=== PATIENT | male | born 1975 | race African-American/Black ===

== ENCOUNTER 2021-01-15 19:42 | Emergency (ER) | payer MEDICAID ==
[~2021-01-15] VITALS: Ht 175.3 cm; Wt 93.5 kg
[2021-01-15] MEDS ORDERED: ONDANSETRON 2MG/ML, 2ML IVPush ONE (20:00)
[2021-01-15] MEDS ORDERED: SODIUM CHLORIDE FLUSH 10ML SYR IVF ONE (20:00)
[2021-01-15] MEDS ORDERED: ONDANSETRON ODT 4 MG PO ONE (20:00)
[2021-01-15] MEDS ORDERED: SODIUM CHLORIDE 0.9% 1,000ML IVBOLUS ONE (20:00)
[2021-01-15] MEDS ORDERED: ONDANSETRON ODT 4 MG ONE (20:00)
[2021-01-15 20:21] LABS: BASOPHILS % (AUTO) 1 % (0-1); EOSINOPHILS % (AUTO) 2 % (1-7); LYMPHOCYTES % (AUTO) 24 % (22-44); MEAN CORPUSCULAR HEMOGLOBIN 28.5 pg (27.5-34.5); MEAN CORPUSCULAR HGB CONC 33.1 g/dL (33.2-36.2); MEAN PLATELET VOLUME 6.5 fL (7.4-10.4); MONOCYTES % (AUTO) 8 % (2-9); NEUTROPHILS % (AUTO) 66 % (42-75); PLATELET COUNT 451 x10^3/uL (130-400); RED CELL DISTRIBUTION WIDTH 14.5 % (9.4-14.8)
[2021-01-15] MEDS ORDERED: MORPHINE SULFATE 4 MG/ML, 1ML IVPush PRN (20:30)
[2021-01-15 20:31] LABS: ALANINE AMINOTRANSFERASE 20 U/L (12-78); ALBUMIN 3.5 g/dL (3.4-5.0); ANION GAP 8 mmol/L (5-15); CALCIUM 9.3 mg/dL (8.5-10.1); CHLORIDE 104 mmol/L (98-107); CREATININE 0.91 mg/dL (0.7-1.3)
[2021-01-15] MEDS ORDERED: ONDANSETRON 2MG/ML, 2ML ONE (20:31)
[2021-01-15] MEDS ORDERED: MORPHINE SULFATE 4 MG/ML, 1ML ONE (20:32)
[2021-01-15 20:33] LABS: ALKALINE PHOSPHATASE 99 U/L (45-117); BILIRUBIN,TOTAL 0.5 mg/dL (0.2-1.0); TOTAL PROTEIN 7.5 g/dL (6.4-8.2)
[2021-01-15] MEDS ORDERED: FAMOTIDINE 20 MG/2 ML ONE (21:12)
[2021-01-15] MEDS ORDERED: MAALOX/HYOSCYAMINE/LIDOCAINE 45 ML BTL ONE (21:12)
[2021-01-15] MEDS ORDERED: PROMETHAZINE 25 MG/ML, 1ML ONE (21:12)
[2021-01-15] MEDS ORDERED: PROMETHAZINE 25 MG/ML, 1ML IM ONE (21:30)
[2021-01-15] MEDS ORDERED: FAMOTIDINE 20 MG/2 ML IVPush ONE (21:30)
[2021-01-15] MEDS ORDERED: MAALOX/HYOSCYAMINE/LIDOCAINE 45 ML BTL PO ONE (21:30)
--- NOTE | 2021-01-15 21:30 | NUR ---
PATIENT STATES TO HAVE ABDOMINAL PAIN AND BLOOD TINGED STOOLS
[2021-01-15] MEDS ORDERED: LIDOCAINE-MPF 1%, 5ML ONE (22:08)
[2021-01-15] MEDS ORDERED: DIPH,PERTUSS(ACELL),TET VAC/PF 0.5 ML IM-VACC ONE (22:09)
[2021-01-15] MEDS ORDERED: NEOSPORIN OINT. PKT 1 PACKET ONE (22:24)
[2021-01-15 22:47] VITALS: BP 142/91
--- NOTE | 2021-01-15 22:49 | NUR ---
PATIENT REFUSING TO LEAVE BECAUSE HE WANTS HIS MEDICATIONS FILLED HERE. pATIENT GIVEN PRESRIPTION FOR MEDICATIONS TO BE FILLED AT AN OUTSIDE PHARMACY. SECURITY CALLED TO HAVE PATIENT REMOVED FROM THE ROOM. 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
--- NOTE | 2021-01-15 22:51 | NUR ---
PATIENT RECEIVED MORPHINE DURING ER VISIT. PATIENT INFORMED THAT HE SHOULD NOT DRIVE OR OPERATE ANY MACHINERY THAT COULD CAUSE HARM TO HIMSELF OR OTHER PEOPLE ONCE DISCHARGED FROM THE ER. INFORMED PATIENT THAT MORPHINE CAN CAUSE DROWSINESS AND POSSIBLY IMPAIR HIS JUDGEMENT. PATIENT CONFIRMS UNDERSTANDING OF TEACHING BY VERBAL CONFIRMATION. Addendum: 01/15/21 at 2307 by [email or web address] PATIENT STATES THAT HE HAS SOMEONE TO COME PICK HIM UP FROM ER
== END 2021-01-15 23:09 | disposition home or self-care (01) ==
LOC: ED 21:23
DX: K25.3 Acute gastric ulcer without hemorrhage or perforation (principal); R10.13 Epigastric pain; R11.2 Nausea with vomiting, unspecified
CPT/HCPCS: 36415; 74018; 80053; 83690; 85025; 96361; 96372; 96374; 96375; 99284; J2270; J2405; J2550; J7030; Q0162